=== PATIENT | female | born 1965 | race Caucasian/White ===

== ENCOUNTER 2018-08-09 06:01 | Day surgery (SDC) | payer BC ==
[2018-08-09 06:26] VITALS: BMI 37.6
[2018-08-09] MEDS ORDERED: Propofol 10 mg/ml Inj (20 ML) ONE (07:01)
[2018-08-09] MEDS ORDERED: Ropivacaine 0.5% 30ML IV ONE (07:04)
[2018-08-09] MEDS ORDERED: Phenylephrine 10 mg/ml Inj ONE (07:06)
[2018-08-09] MEDS ORDERED: Lactated Ringer's 1,000 ML IV ONE (07:10)
[2018-08-09] MEDS ORDERED: Lidocaine 1% Inj (20ml) IJ ONE ×2 (07:18→08:10)
[2018-08-09] MEDS ORDERED: ceFAZolin 1 GM in Sodium Chloride 0.9% 100 ML IVPB ONE (07:18)
[2018-08-09] MEDS ORDERED: Bupivacaine 0.5% Inj(30mL) IJ ONE ×2 (07:18→08:10)
--- NOTE | 2018-08-09 07:22 | CP.SDSHP ---
Same Day Surgery H & P - History Proposed Procedure: Right foot plantar fasciotomy and exicision of heel spur Pre-Op Diagnosis: Right foot plantar fasciitis - Allergies Allergies: Allergies No Known Allergies Allergy (Verified 08/09/18 06:26) - Current Medications Current Medications: motrin - Physical Exam Vital Signs: Vital Signs 08/09/18 06:30 Temperature 98.5 F Pulse Rate 71 Respiratory 18 Rate Blood Pressure 137/92 H O2 Sat by Pulse 94 L Oximetry - {Optional Preform as Required} Ortho: Other (pain with palpation to the right medial calcaneal tubercle) - Date & Time Date: 08/09/18 Time: 09:22 Short Stay Discharge - Short Stay Discharge Admitting Diagnosis/Reason for Visit: M72.2/ M77.31/ Disposition: HOME/ ROUTINE Additional Instructions (Diet, Activity): -Patient in good/stable condition for discharge home -Pt to resume medications per medical reconciliation -Resume regular diet -Please keep dressing clean, dry, & intact to surgical site -Use plastic bag over bandage for showering -Wear post op shoe at all times when ambulating -Call clinic if you see signs of infection (redness, swelling, malodor) -Please make an appointment to see Dr. Lira in office/clinic within 1 week for post-op check Progress Note/Discharge Note with Instructions: - Patient evaluated bedside in recovery s/p right foot plantar fasciotomy and heel spur resection . - After surgical procedure patient in NAD - stable for discharge after (+) Void, (+) Appetite - Capillary refill time <3s and NVS intact. - Patient denies complaints at this time. - Post operative instructions and plan of care explained to patient at length. - Patient. acknowledges verbal understanding. - Patient stable for DC per podiatric surgery
--- NOTE | 2018-08-09 07:25 | CP.PCM.PN ---
Subjective - Date & Time of Evaluation Date of Evaluation: 08/09/18 Time of Evaluation: 07:22 - Subjective Subjective: Podiatry surgery note for Dr. Lira, 52 yo female with no pmhx seen and evaluated in [facility] for right foot surgery. Patient states she has a lot of pain in her right heel and has exhausted all conservative methods at this time, inserts injections stretching PT etc. patient states her pain is mainly when she starts to walk in the morning and gets better as she continues to walk. Denies any food or drink after midnight. Denies taking blood thinners. States she takes motrin regularly but has stopped three days ago. Denies f/n/v/sob. pmhx: none pshx: lapband, urine incontinency, cholecystectomy medications: motrin allergies: NKFDA social hx: denies smoking or drinking alcohol. Objective - Vital Signs/Intake and Output Vital Signs (last 24 hours): Temp Pulse Resp BP Pulse Ox 98.5 F 71 18 137/92 H 94 L 08/09/18 06:30 08/09/18 06:30 08/09/18 06:30 08/09/18 06:30 08/09/18 06:30 - Medications Medications: Current Medications Bupivacaine HCl (Marcaine 0.5%) 20 ml IJ ONCE ONE Stop: 08/09/18 07:19 Cefazolin Sodium 1 gm/ Sodium (Chloride) 100 mls @ 100 mls/hr IVPB ONCE ONE; Protocol Stop: 08/09/18 08:17 Sodium Chloride (Sodium Chloride 0.9%) 1,000 mls @ 0 mls/hr IV .Q0M [facility] Stop: 08/10/18 07:18 Lidocaine HCl (Lidocaine 1% (20ml)) 20 ml IJ ONCE ONE Stop: 08/09/18 07:19 - Constitutional Appears: Well, Non-toxic, No Acute Distress - Head Exam Head Exam: ATRAUMATIC, NORMOCEPHALIC - Eye Exam Eye Exam: Normal appearance - ENT Exam ENT Exam: Mucous Membranes Moist - Respiratory Exam Respiratory Exam: NORMAL BREATHING PATTERN - Cardiovascular Exam Cardiovascular Exam: REGULAR RHYTHM - Extremities Exam Additional comments: pedal pulses palpable, no open lesions, neuro protective sensation intact, sever pain on palpation to the medial calcaneal tubercle. - Neurological Exam Neurological Exam: Alert, Normal Gait Assessment and Plan - Assessment and Plan (Free Text) Assessment: 52 yo female with no pmhx seen and evaluated in [facility] for right foot plantar fasciotomy and removal of heel spur Plan: Pt was seen and examined in [facility] Pt NPO status was confirmed All pre-op testing and clearance in chart Pt has exhausted all conservative treatment at this time and is opting for surgical intervention Pt was explained procedure and post-operative course All pt's questions were answered to satisfaction No guarantees were made Pt understands all risks, benefits and complications of procedure Pt will follow-up with Dr. Lira within 1 week of surgery
[2018-08-09] MEDS ORDERED: Sodium Chloride 0.9% 1,000 ML IV SCH (07:30)
[2018-08-09] MEDS ORDERED: MethylPREDNISolone Depo 40 mg/ml Inj ONE (07:34)
[2018-08-09] MEDS ORDERED: Midazolam 2 MG/2 ML VIAL ONE (07:58)
[2018-08-09] MEDS ORDERED: Dexamethasone 4 mg/1 ml ONE (08:23)
[2018-08-09] MEDS ORDERED: Bupivacaine 0.5% 50 ML IJ ONE (08:47)
--- NOTE | 2018-08-09 08:56 | PCM.SURG1 ---
Surgeon's Initial Post Op Note - Surgeon's Notes Surgeon: Dr. Lira Feed Mill Tender: Clau Rosa PGY1 Chris Vasquez Type of Anesthesia: IV Sedation, Local Anesthesia Administered By: Dr Cerna Pre-Operative Diagnosis: right foot plantar fasciitis with painful heel spur Operative Findings: see dictation. materials- 3-0 prolene. injectibles- 17 cc of 1:1 mixture of .5% maricaine plain and 1% lidocaine plain Post-Operative Diagnosis: same Operation Performed: right foot plantar fasciotomy with heel spur resection Specimen/Specimens Removed: none Estimated Blood Loss: EBL {In ML}: 1 Blood Products Given: N/A Drains Used: No Drains Post-Op Condition: Good Date of Surgery/Procedure: 08/09/18 Time of Surgery/Procedure: 08:57
[2018-08-09] MEDS ORDERED: Dexamethasone 4 mg/1 ml IVP PRN (08:57)
[2018-08-09] MEDS ORDERED: HYDROmorphone 0.5 mg/0.5 ml ISec IVP PRN (08:57)
[2018-08-09] MEDS ORDERED: Oxycodone/Acetaminophen 5/325 mg Tab PO PRN ×2 (08:59)
--- NOTE | 2018-08-09 09:26 | PCM.OP ---
Operative Report - Operative Report Date of Surgery/Procedure: 08/09/18 Time of Surgery/Procedure: 09:24 Surgeon: Dr. Patel Lira Stock Tracer: Clau Rosa PGY1, Francois Vasquez MS4 Anesthesia/Sedation: General ANesthesia Pre-Operative Diagnosis: right foot plantar fasciitis with painful heel spur Post-Operative Diagnosis: same Indication for Surgery: The patient is a 52 year-old female with the above diagnoses. The patient has exhausted all conservative treatment at this time and now requires surgical intervention. The patient signed the consent after careful explanation of risks, benefits, complications and alternatives for surgical procedure. No guarantees were given nor implied. NPO status was confirmed prior to taking patient to the OR. Operative Findings: Attention was directed to the plantar medial aspect of the right heel. 3 cm incision was made using a #15 blade. The incision was then deepened through subcutaneous tissues and tissues were frayed down to the level of the heel spur and plantar fascial band. Plantar heel spur was palpated using a hemostat and a tight band was noted. Through windshield motion of the #15blade, the medial band of the plantar fascia was released and confirmed using a hemostat and freer. Under c-arm guidance the plantar heel spur was located and identified. Using a bone rasp, the spur was debrided. The wound was then flushed with copious amounts of normal sterile saline. The skin was then reapproximated and coapted utilizing #3-0 nylon in a horizontal mattress type technique Procedure/Operation Description: Right foot plantar fasciectomy with heel spur resection Estimated Blood Loss: 1 Complications: none Specimen: none Discharge & Condition: The patient tolerated the anesthesia and procedure well and was escorted to the recovery room with vital signs stable and neurovascular status intact to the Right foot. This patient will follow up with Dr. Lira
[2018-08-09] MEDS ORDERED: Oxycodone/Acetaminophen 5/325 mg Tab PO ONE (11:12)
[2018-08-09 15:33] VITALS: BP 118/64; PULSE 59; RESP 15; TEMP 97.7; O2SAT 96
== END 2018-08-09 15:15 | disposition home or self-care (01) ==
LOC: H.OPSURG 06:01
PROVIDERS: ATTEND Podiatrist Foot & Ankle Surgery
DX: M72.2 Plantar fascial fibromatosis (principal); M77.31 Calcaneal spur, right foot
CPT/HCPCS: 28119; 97161; G8978; G8979; G8980; J0690; J1100; J1170; J2001; J2250; J2370; J2405; J2704; J2765; J3010; J7120